=== PATIENT | female | born 1945 | race Caucasian/White ===

== ENCOUNTER → 2017-05-24 | Outpatient (REF) | payer MEDICARE, OTHER | LOC: M LAB REF 07:42 | PROVIDERS: ATTEND Internal Medicine | DX: E83.52 Hypercalcemia (principal) ==

== ENCOUNTER → 2017-09-08 | Outpatient (REF) | payer MEDICARE, OTHER | LOC: M LAB REF 12:19 | PROVIDERS: ATTEND Internal Medicine | DX: E83.52 Hypercalcemia (principal) ==

== ENCOUNTER 2018-03-21 12:37 | Outpatient (REF) | payer MEDICARE, OTHER ==
[2018-03-22 13:02] LABS: PTH INTACT 95.1 PG/ML (18.5-88.0)
== END 2018-03-22 ==
LOC: M LAB REF 12:37
DX: E83.52 Hypercalcemia (principal)
CPT/HCPCS: 83970

== ENCOUNTER → 2018-04-12 | Outpatient (CLI) | payer MEDICARE, OTHER ==
[2018-04-12 19:23] LABS: ANION GAP 6 MEQ/L (8-16); BLOOD UREA NITROGEN 13 MG/DL (7-18); CALCIUM LEVEL 10.3 MG/DL (8.8-10.2); CARBON DIOXIDE LEVEL 24 MEQ/L (21-32); CHLORIDE LEVEL 112 MEQ/L (98-107); CREATININE FOR GFR 0.91 MG/DL (0.55-1.30); GLOMERULAR FILTRATION RATE > 60.0 (>39); GLUCOSE, FASTING 106 MG/DL (70-100); POTASSIUM SERUM 4.1 MEQ/L (3.5-5.1); SODIUM LEVEL 142 MEQ/L (136-145)
[2018-04-12 19:31] LABS: CALCIUM, URINE 21.9 MG/DL
[2018-04-14 22:12] LABS: CALCIUM, 24 HOUR URINE 197.1 MG/24HR (42-353); TOTAL VOLUME, URINE 900 ML
== END ==
LOC: M LAB 16:27
DX: E21.3 Hyperparathyroidism, unspecified (principal)
CPT/HCPCS: 82340

== ENCOUNTER → 2018-06-09 | Outpatient (CLI) | payer MEDICARE, OTHER | LOC: M RAD 12:43 | DX: J32.0 Chronic maxillary sinusitis (principal) | CPT/HCPCS: 70486 ==

== ENCOUNTER → 2018-09-23 | Outpatient (CLI) | payer MEDICARE, OTHER ==
[2018-09-23 17:01] LABS: CALCIUM LEVEL 10.4 MG/DL (8.8-10.2)
== END ==
LOC: M LAB 16:08
DX: E21.3 Hyperparathyroidism, unspecified (principal)
CPT/HCPCS: 82310

== ENCOUNTER → 2018-09-25 | Outpatient (REF) | payer MEDICARE, OTHER ==
[2018-09-25 12:53] LABS: CALCIUM, URINE 26.8 MG/DL; TOTAL VOLUME, URINE 750 ML
== END ==
LOC: M LAB REF 11:41
DX: E21.3 Hyperparathyroidism, unspecified (principal)
CPT/HCPCS: 82340

== ENCOUNTER → 2018-09-26 | Outpatient (REF) | payer MEDICARE, OTHER ==
[2018-09-26 17:53] LABS: TOTAL PROTEIN 7.4 GM/DL (6.4-8.2)
[2018-09-27 10:02] LABS: ALBUMIN 4.66 GM/DL (3.29-5.55)
[2018-09-27 10:03] LABS: ALPHA-1-GLOBULIN % 3.9 % (2.9-4.9); ALPHA-1-GLOBULINS 0.29 GM/DL (0.17-0.41); ALPHA-2-GLOBULINS 0.75 GM/DL (0.42-0.99); ALPHA-2-GLOBULINS % 10.2 % (7.1-11.8); BETA-1-GLOBULINS 0.41 GM/DL (0.28-0.60); BETA-1-GLOBULINS % 5.6 % (4.7-7.2); BETA-2-GLOBULINS 0.32 GM/DL (0.19-0.55); BETA-2-GLOBULINS % 4.3 % (3.2-6.5); GAMMA GLOBULINS 0.96 GM/DL (0.65-1.58)
== END ==
LOC: M LAB REF 16:48
DX: E83.52 Hypercalcemia (principal)
CPT/HCPCS: 84165

== ENCOUNTER → 2018-12-21 | Outpatient (REF) | payer MEDICARE, OTHER | LOC: M LAB REF 12:53 | PROVIDERS: ATTEND Internal Medicine | DX: G60.9 Hereditary and idiopathic neuropathy, unspecified (principal) ==

== ENCOUNTER 2019-02-07 13:41 | Outpatient (RCR) | payer MEDICARE, OTHER | END 2019-02-12 | LOC: M PT 13:41 | PROVIDERS: ATTEND Internal Medicine | DX: M25.561 Pain in right knee (principal); M25.562 Pain in left knee ==

== ENCOUNTER 2019-03-01 15:10 | Outpatient (RCR) | payer MEDICARE, OTHER | END 2019-03-14 | LOC: M PT 15:10 | PROVIDERS: ATTEND Internal Medicine | DX: M25.561 Pain in right knee (principal); M25.562 Pain in left knee ==

== ENCOUNTER → 2019-03-21 | Outpatient (REF) | payer MEDICARE, OTHER | LOC: M LAB REF 16:45 | PROVIDERS: ATTEND Internal Medicine | DX: E83.52 Hypercalcemia (principal) ==

== ENCOUNTER → 2019-10-03 | Outpatient (REF) | payer MEDICARE, OTHER ==
[2019-10-04 20:33] LABS: PTH INTACT 67.5 PG/ML (18.5-88.0); TOTAL PROTEIN 7.5 GM/DL (6.4-8.2)
[2019-10-05 11:09] LABS: ALBUMIN 4.81 GM/DL (3.29-5.55); ALBUMIN % 64.1 % (55.8-66.1); ALPHA-1-GLOBULIN % 3.8 % (2.9-4.9); ALPHA-1-GLOBULINS 0.29 GM/DL (0.17-0.41); ALPHA-2-GLOBULINS 0.72 GM/DL (0.42-0.99); ALPHA-2-GLOBULINS % 9.6 % (7.1-11.8); BETA-1-GLOBULINS 0.44 GM/DL (0.28-0.60); BETA-1-GLOBULINS % 5.9 % (4.7-7.2); BETA-2-GLOBULINS 0.32 GM/DL (0.19-0.55); BETA-2-GLOBULINS % 4.3 % (3.2-6.5); GAMMA GLOBULIN % 12.3 % (11.1-18.8); GAMMA GLOBULINS 0.92 GM/DL (0.65-1.58)
== END ==
LOC: M LAB REF 16:50
PROVIDERS: ATTEND Internal Medicine
DX: E83.52 Hypercalcemia (principal)

== ENCOUNTER → 2020-07-10 | Outpatient (REF) | payer MEDICARE, OTHER ==
[2020-07-10 17:41] LABS: FERRITIN 134 NG/ML (8-252); IMMUNOGLOBULIN A 69.5 MG/DL (70-400)
[2020-07-10 17:49] LABS: PTH INTACT 57.6 PG/ML (18.5-88.0)
[2020-07-10 17:54] LABS: INR 0.93; PROTHROMBIN TIME 12.7 SECONDS (11.8-14.0)
[2020-07-10 18:00] LABS: HEPATITIS B SURFACE ANTIGEN NEGATIVE (NEGATIVE)
[2020-07-10 18:29] LABS: HEPATITIS C VIRUS ABY INDEX 0.2 INDEX (<0.8)
[2020-07-16 06:08] LABS: ALPHA 1 ANTITRYPSIN 139 mg/dL (101-187); ANTI-MITOCHONDRIAL ANTIBODY <20.0 Units (0.0-20.0); ANTI-SMOOTH MUSCLE ANTIBODY 35 Units (0-19); ANTINUCLEAR ANTIBODIES DIRECT Negative (Negative); CERULOPLASMIN 18.8 mg/dL (19.0-39.0); HBVCOREDIFF1 Negative (Negative); HBVCOREDIFF2 Negative (Negative); LIVER-KIDNEY MICROSOMAL ABY <20.1 Units (0.0-20.0); TISSUE TRANSGLUTAMINASE IgA <2 U/mL (0-3); TISSUE TRANSGLUTAMINASE IgG 2 U/mL (0-5)
== END ==
LOC: M LAB REF 17:15
PROVIDERS: ATTEND Internal Medicine
DX: R94.5 Abnormal results of liver function studies (principal); K76.0 Fatty (change of) liver, not elsewhere classified; K21.9 Gastro-esophageal reflux disease without esophagitis

== ENCOUNTER → 2020-08-14 | Outpatient (REF) | payer MEDICARE, OTHER ==
[2020-08-16 17:13] LABS: CERULOPLASMIN 20.7 mg/dL (19.0-39.0)
== END ==
LOC: M LAB REF 17:01
PROVIDERS: ATTEND Internal Medicine
DX: R94.5 Abnormal results of liver function studies (principal); K76.0 Fatty (change of) liver, not elsewhere classified; K21.9 Gastro-esophageal reflux disease without esophagitis

== ENCOUNTER → 2021-02-10 | Outpatient (CLI) | payer MEDICARE, OTHER ==
--- NOTE | 2021-02-10 13:13 | REP ---
INDICATION: LEFT CAROTID PRESSURE COMPARISON: None. TECHNIQUE: Mares scale and color Doppler evaluation using linear high frequency transducer Findings: FINDINGS: Two-dimensional mares scale and color images demonstrate normal arterial lumen with laminar flow and no appreciable narrowing. Color Doppler interrogation demonstrates normal arterial wave patterns and velocities with no significant spectral broadening. Normal flow direction is appreciated in the bilateral vertebral arteries. ICA peak systolic velocity: Right 61.8 cm/s; Left 47.8 cm/s ICA diastolic velocity: Right 27.2 cm/s; Left 27.6 cm/s ECA peak systolic velocity: Right 49.4 cm/s; Left 42.2 cm/s CCA peak systolic velocity: Right 78.7 cm/s; Left 67.7 cm/s ICA/CCA ratio: Right 0.79 cm/s; Left 0.71 cm/s IMPRESSION: No hemodynamically significant areas of narrowing or stenosis appreciated. Based on set standards narrowing falls within the normal/less than 50% range. <Electronically signed by Jatinder Knight > 02/10/21 1213
== END ==
LOC: M RAD 11:33
PROVIDERS: ATTEND Internal Medicine
DX: I65.22 Occlusion and stenosis of left carotid artery (principal)

== ENCOUNTER → 2021-06-17 | Outpatient (CLI) | payer MEDICARE, OTHER | LOC: M WHC 10:01 | PROVIDERS: ATTEND Internal Medicine Endocrinology, Diabetes & Metabolism | DX: M81.0 Age-related osteoporosis without current pathological fracture (principal) ==

== ENCOUNTER → 2022-02-12 | Outpatient (CLI) | payer MEDICARE, OTHER | LOC: M RAD 06:41 | PROVIDERS: ATTEND Internal Medicine Gastroenterology | DX: R10.10 Upper abdominal pain, unspecified (principal) ==

== ENCOUNTER → 2022-09-04 | Outpatient (REF) | payer MEDICARE, OTHER | LOC: M LAB REF 12:11 | PROVIDERS: ATTEND Internal Medicine | DX: E21.3 Hyperparathyroidism, unspecified (principal) ==

== ENCOUNTER → 2022-09-29 | Outpatient (CLI) | payer MEDICARE, OTHER ==
[~2022-09-29] MED LIST: E-Z-GAS II EFFERVESCENT PACKET (SODIUM BICARB./CITRIC ACID/SIMETHICONE) As Ordered ONE; E-Z-HD 98% w/w 340GM SUSP BTL As Ordered ONE; E-Z-PAQUE 96% w/w SUSP 176GM BTL As Ordered ONE
== END ==
LOC: M RAD 07:40
PROVIDERS: ATTEND Internal Medicine
DX: K30 Functional dyspepsia (principal); K44.9 Diaphragmatic hernia without obstruction or gangrene; K21.9 Gastro-esophageal reflux disease without esophagitis; K31.7 Polyp of stomach and duodenum; K57.10 Diverticulosis of small intestine without perforation or abscess without bleeding

== ENCOUNTER → 2022-12-30 | Outpatient (CLI) | payer MEDICARE, OTHER | LOC: M PLAIMG 10:41 | PROVIDERS: ATTEND Otolaryngology | DX: R22.1 Localized swelling, mass and lump, neck (principal) ==

== ENCOUNTER → 2023-03-01 | Outpatient (CLI) | payer MEDICARE, OTHER ==
[~2023-03-01] MED LIST changes: -E-Z-GAS II EFFERVESCENT PACKET (SODIUM BICARB./CITRIC ACID/SIMETHICONE) As Ordered ONE; -E-Z-HD 98% w/w 340GM SUSP BTL As Ordered ONE; -E-Z-PAQUE 96% w/w SUSP 176GM BTL As Ordered ONE; +ISOVUE-370 76% 100ML VIAL As Ordered ONE
== END ==
LOC: M RAD 13:42
PROVIDERS: ATTEND Internal Medicine Gastroenterology
DX: R91.8 Other nonspecific abnormal finding of lung field (principal); R10.13 Epigastric pain; K76.0 Fatty (change of) liver, not elsewhere classified
CPT/HCPCS: 74170; Q9967

== ENCOUNTER → 2023-07-22 | Outpatient (CLI) | payer MEDICARE, OTHER | LOC: M WHC 12:41 | PROVIDERS: ATTEND Internal Medicine Endocrinology, Diabetes & Metabolism | DX: M81.0 Age-related osteoporosis without current pathological fracture (principal) ==

== ENCOUNTER → 2024-01-11 | Outpatient (CLI) | payer MEDICARE, OTHER | LOC: M WUC 10:42 | PROVIDERS: ATTEND Internal Medicine | DX: M35.00 Sjogren syndrome, unspecified (principal) ==

== ENCOUNTER → 2024-03-14 | Outpatient (CLI) | payer MEDICARE, OTHER | LOC: M RAD 09:26 | PROVIDERS: ATTEND Physician Assistant | DX: I81 Portal vein thrombosis (principal) ==

== ENCOUNTER → 2024-06-20 | Outpatient (CLI) | payer MEDICARE, OTHER ==
[~2024-06-20] MED LIST changes: -ISOVUE-370 76% 100ML VIAL As Ordered ONE; +METHACHOLINE KIT (6 VIAL.NEB PREMIX) INH ONE
== END ==
LOC: M CARPUL 09:52
PROVIDERS: ATTEND Internal Medicine Pulmonary Disease
DX: R06.02 Shortness of breath (principal)
CPT/HCPCS: 94070; 95070; J7674

== ENCOUNTER → 2024-09-04 | Outpatient (REF) | payer MEDICARE, OTHER ==
[2024-09-04 18:51] LABS: PHOSPHORUS LEVEL 2.2 MG/DL (2.4-5.1)
[2024-09-04 18:52] LABS: PTH INTACT 99.4 PG/ML (18.5-88.0)
== END ==
LOC: M LAB REF 16:44
PROVIDERS: ATTEND Internal Medicine
DX: E83.52 Hypercalcemia (principal)

== ENCOUNTER → 2024-10-25 | Outpatient (REF) | payer MEDICARE, OTHER ==
[2024-10-30 13:38] LABS: ANA SCREEN, IFA NEGATIVE (NEGATIVE)
[2024-11-01 13:48] LABS: ANTI DS-DNA AB NEGATIVE (NEGATIVE)
== END ==
LOC: M LAB REF 16:23
PROVIDERS: ATTEND Internal Medicine
DX: L28.0 Lichen simplex chronicus (principal)

== ENCOUNTER → 2024-11-29 | Outpatient (REF) | payer MEDICARE, OTHER ==
[2024-11-29 13:03] LABS: PHOSPHORUS LEVEL 2.9 MG/DL (2.4-5.1); PTH INTACT 73.4 PG/ML (18.5-88.0)
[2024-11-29 13:07] LABS: TOTAL 25(OH) VITAMIN D 38.8 NG/ML (20.0-100.0)
== END ==
LOC: M LAB REF 12:22
PROVIDERS: ATTEND Internal Medicine
DX: E21.3 Hyperparathyroidism, unspecified (principal)

== ENCOUNTER → 2024-12-19 | Outpatient (CLI) | payer MEDICARE, OTHER | LOC: M RAD 14:40 | PROVIDERS: ATTEND Internal Medicine | DX: M54.2 Cervicalgia (principal); M48.02 Spinal stenosis, cervical region ==

== ENCOUNTER → 2025-01-18 | Outpatient (CLI) | payer MEDICARE, OTHER | LOC: M WUC 09:18 | PROVIDERS: ATTEND Student in an Organized Health Care Education/Training Program | DX: M79.671 Pain in right foot (principal) ==

== ENCOUNTER → 2025-03-26 | Outpatient (REF) | payer MEDICARE, OTHER ==
[2025-03-26 13:16] LABS: PHOSPHORUS LEVEL 2.9 MG/DL (2.4-5.1); PTH INTACT 79.3 PG/ML (18.5-88.0)
== END ==
LOC: M LAB REF 12:01
PROVIDERS: ATTEND Internal Medicine
DX: E21.3 Hyperparathyroidism, unspecified (principal)

== ENCOUNTER → 2025-05-28 | Outpatient (REF) | payer MEDICARE, OTHER ==
[2025-05-28 13:02] LABS: PHOSPHORUS LEVEL 2.2 MG/DL (2.4-5.1)
[2025-05-28 13:03] LABS: PTH INTACT 39.3 PG/ML (18.5-88.0)
[2025-05-30 12:00] LABS: VITAMIN B12 LEVEL 483.0 PG/ML (211-911)
[2025-05-31 13:33] LABS: TOTAL 25(OH) VITAMIN D 34.6 NG/ML (20.0-100.0)
== END ==
LOC: M LAB REF 12:02
PROVIDERS: ATTEND Internal Medicine
DX: E21.3 Hyperparathyroidism, unspecified (principal); M81.0 Age-related osteoporosis without current pathological fracture; M19.90 Unspecified osteoarthritis, unspecified site